=== PATIENT | male | born 1975 | race Caucasian/White ===

== ENCOUNTER 2023-08-30 15:47 | Outpatient (CLI) | payer MEDICARE, MEDICAID ==
[~2023-08-30 15:47] MED LIST: CHOL400T32 PO; FLUP10TA13 PO; LORA0.5T PO; OLAN20TA3 PO; PARO37.517 PO
== END 2023-08-30 23:59 | disposition home or self-care (01) ==
LOC: RAD 15:47
PROVIDERS: ATTEND Nurse Practitioner Psychiatric/Mental Health
DX: I51.7 Cardiomegaly (principal); Z79.899 Other long term (current) drug therapy
CPT/HCPCS: 93005

== ENCOUNTER 2024-11-21 14:42 | Outpatient (CLI) | payer MEDICARE, MEDICAID | END 2024-11-21 23:59 | disposition home or self-care (01) | LOC: RAD 14:42 | PROVIDERS: ATTEND Nurse Practitioner Psychiatric/Mental Health | DX: I51.7 Cardiomegaly (principal); F25.1 Schizoaffective disorder, depressive type; Z79.899 Other long term (current) drug therapy; R94.31 Abnormal electrocardiogram [ECG] [EKG] | CPT/HCPCS: 93005 ==